=== PATIENT | female | born 1960 | race Caucasian/White ===

== ENCOUNTER 2021-01-24 16:00 | Emergency (ER) | payer OTHER ==
[~2021-01-24] VITALS: Ht 167.6 cm; Wt 104.3 kg
[~2021-01-24 16:00] MED LIST: NORCO 5-325 TA1 EACH PO
[2021-01-24] MEDS ORDERED: FLEXERIL PO (21:14)
[2021-01-24 21:26] VITALS: BP 144/63
== END 2021-01-24 21:26 | disposition home or self-care (01) ==
LOC: M.ERS 16:00
DX: M25.511 Pain in right shoulder (principal); R51.9 Headache, unspecified; V89.2XXA Person injured in unspecified motor-vehicle accident, traffic, initial encounter; Y93.89 Activity, other specified; Y92.89 Other specified places as the place of occurrence of the external cause; Y99.8 Other external cause status